=== PATIENT | male | born 1970 | race Caucasian/White ===

== ENCOUNTER 2016-09-23 21:37 | Emergency (ER) | payer OTHER ==
[~2016-09-23] VITALS: Ht 170.2 cm; Wt 78.0 kg
[2016-09-23 21:45] VITALS: BP 133/93; PULSE 88; RESP 14; TEMP 98.1; O2SAT 96
--- NOTE | 2016-09-23 22:40 | RADRPT ---
EXAM DATE/TIME: 09/23/2016 22:27 [place] COMPARISON: No previous studies available for comparison. INDICATIONS : Altered mental status; possible fall. ETOH. RADIATION DOSE: 37.12 CTDIvol (mGy) MEDICAL HISTORY : Seizures. SURGICAL HISTORY : Tonsillectomy. ENCOUNTER: Initial ACUITY: 1 day PAIN SCALE: Non-responsive LOCATION: cranial TECHNIQUE: Multiple contiguous axial images were obtained of the head. Using automated exposure control and adj ustment of the mA and/or kV according to patient size, radiation dose was kept as low as reasonably a chievable to obtain optimal diagnostic quality images. FINDINGS: There is no evidence for intracranial hemorrhage, mass effect, mass lesions, edema, or extra-axial fl uid collections. The visualized bony structures appear intact. The ventricles are normal size for t he patient's age. There are no signs of acute infarction for technique. CONCLUSION: Unremarkable study. Le Topete MD on September 23, 2016 at 22:37 Board Certified Radiologist. This report was verified electronically.
--- NOTE | 2016-09-23 22:52 | PD ---
HPI Chief Complaint: Alcohol/Drug Intoxication Time Seen by Provider: 22:46 Travel History International Travel<30 days: No Contact w/Intl Traveler<30days: No Traveled to known affect area: No History of Present Illness HPI 46-year-old white male presents to emergency department under [place] act by joanna OLIVARES. The patient was found intoxicated lying in the street. The patient here is very vague on why he was doing this. He denies any suicidal homicidal ideation. He does have an abrasion on his right elbow and on the left posterior occiput. He denies syncope. Up-to-date with immunizations. He does state that he is homeless and an alcoholic. He denies any seizure. Denies any recent illness. [facility] Past Medical History Narrative Medical Homelessness, alcoholism, alcohol withdrawal seizure, left upper extremity fracture, left lower extremity fracture Autoimmune Disease: No Blood Disorders: No Cancer: No Cardiovascular Problems: No Chemotherapy: No Diminished Hearing: No Endocrine: No Genitourinary: No Musculoskeletal: Yes (CHRONIC BACK PAIN) Neurologic: No Psychiatric: Yes (DEPRESSION AND ANXIETY) Respiratory: No Immunizations Current: Yes Radiation Therapy: No Seizures: Yes (1 SEIZURE APPROXIMATELY 6 MOS AGO, REFUSED TO GO TO HOSPITAL AT THAT TIME) Past Surgical History Narrative Surgical Tonsillectomy, left knee surgery Abdominal Surgery: No Cardiac Surgery: No Ear Surgery: No Endocrine Surgery: No Eye Surgery: No Genitourinary Surgery: No Gynecologic Surgery: No Oral Surgery: No Thoracic Surgery: No Tonsillectomy: Yes Other Surgery: Yes Social History Alcohol Use: Yes (6 PACK A DAY) Tobacco Use: Yes (1 PPD) Substance Use: Yes (MARIJUANA ) Allergies-Medications (Allergen,Severity, Reaction): Coded Allergies: Keflex (Verified Allergy, Severe, Hives, 09/23/16) Reported Meds & Prescriptions Reported Meds & Active Scripts Active No Active Prescriptions or Reported Medications Review of Systems ROS Limitations: Intoxication Physical Exam Narrative GENERAL: Well-nourished, well-developed patient. Smells of EtOH and appears intoxicated. SKIN: Warm and dry. Abrasion to the right elbow and left posterior occipital region. No step-off. HEAD: Normocephalic and abrasion to the left posterior occiput. EYES: No scleral icterus. No injection or drainage. ENT: No nasal drainage noted. Mucous membranes pink. Airway patent. NECK: Supple, trachea midline. Moves head freely without obvious discomfort. CARDIOVASCULAR: Regular rate and rhythm without murmurs, gallops, or rubs. RESPIRATORY: Breath sounds equal bilaterally. No accessory muscle use. GASTROINTESTINAL: Abdomen soft, non-tender, nondistended. EXTREMITIES: No cyanosis or edema. Chronic arthritic changes in the left upper extremity as well as the left lower extremity. BACK: Nontender without obvious deformity. No CVA tenderness. NEURO: Patient is alert and oriented. no sensorimotor deficits. Nonfocal. Slurred speech. PSYCH: No delusions. No auditory or visual hallucinations. Data Data Last Documented VS Vital Signs Date Time Temp Pulse Resp B/P Pulse Ox O2 Delivery O2 Flow Rate FiO2 09/23/16 21:49 92 96 Room Air 09/23/16 21:45 98.1 14 133/[address] Brain W/O Iv Contrast(Rout) (09/23/16 22:12) [facility] Medical Decision Making Medical Screen Exam Complete: Yes Emergency Medical Condition: Yes Medical Record Reviewed: Yes Interpretation(s) Last [address] 09/23/162211 Signed Impressions: Service Date/Time: Friday, September 23, 2016 22:27 - CONCLUSION: Unremarkable study. KFemi Topete MD Differential Diagnosis Differential diagnoses: Alcohol intoxication, substance abuse, electrolyte abnormality, malingering Narrative Course The patient's CAT scan is negative. His exam reveals superficial abrasions. He moves his head freely. He does not appear to be suffering from any acute injury. The patient will be allowed to sleep it off here in the ER and will be discharged when he exhibits sobriety. It does not appear that this was a suicidal action in by the patient. The patient endorses no suicidal ideation or homicidal ideation. Diagnosis Primary Impression: Alcohol intoxication Qualified Code: F10.120 - Alcohol intoxication, uncomplicated Additional Impression: Caron act-lifted Patient Instructions: General Instructions Additional Instructions: Rest. Increase fluids. Avoid alcohol. Avoid illegal substances. Follow-up with [facility] for detox. Do not operate a car or any heavy machinery under the influence of alcohol or drugs. Follow-up with a medical doctor this week. Return to the ER for emergencies Med/Other Pt SpecificInfo: Wound Care Scripts No Active Prescriptions or Reported Meds Disposition: DISCHARGE HOME Condition: Stable Sudhir Lazaro Sep 23, 2016 22:52
[2016-09-24 06:45] VITALS: BP 120/77
== END 2016-09-24 07:00 | disposition home or self-care (01) ==
LOC: NEPD 21:37 → NEDAMB 09-24 07:00
DX: F10.120 Alcohol abuse with intoxication, uncomplicated (principal); S50.311A Abrasion of right elbow, initial encounter; S00.81XA Abrasion of other part of head, initial encounter; X58.XXXA Exposure to other specified factors, initial encounter; Y92.414 Local residential or business street as the place of occurrence of the external cause; Z59.0 Homelessness
CPT/HCPCS: 70450

== ENCOUNTER 2016-10-18 14:33 | Emergency (ER) | payer OTHER ==
[~2016-10-18] VITALS: Ht 177.8 cm; Wt 79.5 kg
[2016-10-18 14:47] VITALS: BP 149/88; PULSE 105; RESP 15; TEMP 98.5
[2016-10-18] MEDS ORDERED: SODIUM CHLOR 0.9% 1000 ML INJ 1,000 ML IV ONE (15:00)
[2016-10-18] MEDS ORDERED: SODIUM CHLORIDE 0.9% FLUSH 10 ML FLUSH IVF PRN (15:00)
--- NOTE | 2016-10-18 15:00 | PD ---
HPI Chief Complaint: Alcohol/Drug Intoxication Time Seen by Provider: 14:55 Travel History International Travel<30 days: No Contact w/Intl Traveler<30days: No Traveled to known affect area: No History of Present Illness HPI Patient is a 46-year-old male brought in by the Police Department under a [place]man act due to public intoxication. Patient was found sleeping against a wall at a convenience store. Patient admits to drinking 4-5 "big boys" today. Patient states his motto is "beer and weed is all I need". He has not smoked any marijuana today. He denies any physical complaints. PFSH Past Medical History Autoimmune Disease: No Blood Disorders: No Depression: Yes (untreated ) Cancer: No Cardiovascular Problems: No Chemotherapy: No Diminished Hearing: No Endocrine: No Genitourinary: No Musculoskeletal: Yes (CHRONIC BACK PAIN) Neurologic: No Respiratory: No Immunizations Current: Yes Radiation Therapy: No Seizures: Yes (1 SEIZURE APPROXIMATELY 6 MOS AGO, REFUSED TO GO TO HOSPITAL AT THAT TIME) Tetanus Vaccination: < 5 Years Influenza Vaccination: No ?: Not Past Surgical History Abdominal Surgery: No Cardiac Surgery: No Cholecystectomy: Yes Ear Surgery: No Endocrine Surgery: No Eye Surgery: No Genitourinary Surgery: No Gynecologic Surgery: No Joint Replacement: Yes (Lt knee) Oral Surgery: No Thoracic Surgery: No Tonsillectomy: Yes Other Surgery: Yes Social History Alcohol Use: Yes Tobacco Use: Yes Substance Use: Yes Allergies-Medications (Allergen,Severity, Reaction): Coded Allergies: Keflex (Verified Allergy, Severe, Hives, 09/23/16) Reported Meds & Prescriptions Reported Meds & Active Scripts Active No Active Prescriptions or Reported Medications Review of Systems ROS Limitations: Intoxication Except as stated in HPI: all other systems reviewed are Neg Physical Exam Narrative GENERAL: Alert, well-developed, well-nourished, intoxicated-appearing male. Resting comfortably in no acute distress. SKIN: Focused skin assessment warm/dry. HEAD: Atraumatic. Normocephalic. EYES: Pupils equal and round. No scleral icterus. No injection or drainage. ENT: No nasal bleeding or discharge. Mucous membranes pink and moist. NECK: Trachea midline. No JVD. CARDIOVASCULAR: Regular rate and rhythm. No murmur appreciated. RESPIRATORY: No accessory muscle use. Clear to auscultation. Breath sounds equal bilaterally. GASTROINTESTINAL: Abdomen soft, non-tender, nondistended. Hepatic and splenic margins not palpable. MUSCULOSKELETAL: No obvious deformities. No clubbing. No cyanosis. No edema. NEUROLOGICAL: Awake and alert and oriented. No obvious cranial nerve deficits. Motor grossly within normal limits. Normal speech. PSYCHIATRIC: Appropriate mood and affect; insight and judgment normal. Data Data Last Documented VS Vital Signs Date Time Temp Pulse Resp B/P Pulse Ox O2 Delivery O2 Flow Rate FiO2 10/18/16 14:47 98.5 105 15 149/88 Orders Complete Blood Count With Diff (10/18/16 14:50) Comprehensive Metabolic Panel (10/18/16 14:50) Urinalysis - C+S If Indicated (10/18/16 14:50) Oximetry (10/18/16 14:50) Iv Access Insert/Monitor (10/18/16 14:50) Ecg Monitoring (10/18/16 14:50) Sodium Chloride 0.9% Flush (Ns Flush) (10/18/16 15:00) Drug Screen, Random Urine (10/18/16 14:50) Alcohol (Ethanol) (10/18/16 14:50) Sodium Chlor 0.9% 1000 Ml Inj (Ns 1000 M (10/18/16 15:00) Labs Laboratory Tests Test 10/18/16 14:50 White Blood Count 7.4 TH/MM3 Red Blood Count 4.49 MIL/MM3 Hemoglobin 14.7 GM/DL Hematocrit 43.8 % Mean Corpuscular Volume 97.5 FL Mean Corpuscular Hemoglobin 32.8 PG Mean Corpuscular Hemoglobin 33.6 % Concent Red Cell Distribution Width 13.9 % Platelet Count 189 TH/MM3 Mean Platelet Volume 7.9 FL Neutrophils (%) (Auto) 55.7 % Lymphocytes (%) (Auto) 31.6 % Monocytes (%) (Auto) 9.8 % Eosinophils (%) (Auto) 2.4 % Basophils (%) (Auto) 0.5 % Neutrophils # (Auto) 4.1 TH/MM3 Lymphocytes # (Auto) 2.4 TH/MM3 Monocytes # (Auto) 0.7 TH/MM3 Eosinophils # (Auto) 0.2 TH/MM3 Basophils # (Auto) 0.0 TH/MM3 CBC Comment DIFF FINAL Differential Comment Urine Color YELLOW Urine Turbidity CLEAR Urine pH 5.0 Urine Specific [place] 1.003 Urine Protein TRACE mg/dL Urine Glucose (UA) NEG mg/dL Urine Ketones TRACE mg/dL Urine Occult Blood NEG Urine Nitrite NEG Urine Bilirubin NEG Urine Urobilinogen LESS THAN 2.0 MG/DL Urine Leukocyte Esterase NEG Urine RBC LESS THAN 1 /hpf Urine WBC 1 /hpf Urine Bacteria RARE /hpf Microscopic Urinalysis Comment CULT NOT INDICATED Sodium Level 135 MEQ/L Potassium Level 4.6 MEQ/L Chloride Level 100 MEQ/L Carbon Dioxide Level 23.9 MEQ/L Anion Gap 11 MEQ/L Blood Urea Nitrogen 4 MG/DL Creatinine 0.60 MG/DL Estimat Glomerular Filtration 146 ML/MIN Rate Random Glucose 116 MG/DL Calcium Level 8.5 MG/DL Total Bilirubin 0.5 MG/DL Aspartate Amino Transf 102 U/L (AST/SGOT) Alanine Aminotransferase 72 U/L (ALT/SGPT) Alkaline Phosphatase 83 U/L Total Protein 7.6 GM/DL Albumin 3.4 GM/DL Urine Opiates Screen NEG Urine Barbiturates Screen NEG Urine Amphetamines Screen NEG Urine Benzodiazepines Screen NEG Urine Cocaine Screen NEG Urine Cannabinoids Screen NEG Ethyl Alcohol Level 348 MG/DL MDM Medical Decision Making Medical Screen Exam Complete: Yes Emergency Medical Condition: Yes Interpretation(s) Vital Signs Date Time Temp Pulse Resp B/P Pulse Ox O2 Delivery O2 Flow Rate FiO2 10/18/16 14:47 98.5 105 15 149/88 Differential Diagnosis Acute intoxication versus substance abuse versus mood disorder versus syncope versus arrhythmia versus electrolyte abnormality versus other Narrative Course Patient is a 46-year-old male brought in under the [employer] act for public intoxication. Labs ordered and pending, IV fluids ordered. Vital signs are stable, patient resting comfortably. CBC is unremarkable Chemistry is unremarkable Urine drug screen is negative, alcohol level is 348 Urinalysis is not indicative of urinary tract infection Patient is acutely intoxicated, he will be allowed to sleep it off, he was offered food. When patient can ambulate safely he'll be discharged from the emergency department. Patient is medically cleared. 1700- BP 110/62 HR 65 O2 Sat 96% on room air asleep Diagnosis Primary Impression: Alcohol intoxication Qualified Code: F10.920 - Alcohol intoxication, uncomplicated Referrals: [facility] Patient Instructions: Abuse of Alcohol (ED), Alcohol Intoxication (DC), General Instructions Additional Instructions: Avoid excessive intake of alcohol Maintain adequate fluid intake Follow-up with the [facility] Return to emergency department for any new or worsening symptoms Med/Other Pt SpecificInfo: No Change to Meds Scripts No Active Prescriptions or Reported Meds Disposition: 01 DISCHARGE HOME Condition: Stable Princess Hussein October 18, 2016 15:00
[2016-10-18 15:16] LABS: AUTOMATED NEUTROPHIL # 4.1 TH/MM3 (1.8-7.7); BASOPHIL % 0.5 % (0.0-2.0); EOSINOPHIL # 0.2 TH/MM3 (0-0.4); EOSINOPHIL % 2.4 % (0.0-4.0); HEMATOCRIT 43.8 % (39.0-51.0); HEMO FLAGS DIFF FINAL; LYMPH % 31.6 % (9.0-44.0); LYMPHOCYTE # 2.4 TH/MM3 (1.0-4.8); MEAN CELL VOLUME 97.5 FL (80.0-100.0); MEAN CORPUSCULAR HEMOGLOBIN 32.8 PG (27.0-34.0); MEAN CORPUSCULAR HGB CONC 33.6 % (32.0-36.0); MONO % 9.8 % (0.0-8.0); NEUT % 55.7 % (16.0-70.0); PLATELET COUNT 189 TH/MM3 (150-450); RED BLOOD COUNT 4.49 MIL/MM3 (4.50-5.90); RED CELL DISTRIBUTION WIDTH 13.9 % (11.6-17.2); WHITE BLOOD COUNT 7.4 TH/MM3 (4.0-11.0)
[2016-10-18 15:25] LABS: AMPHETAMINE, URINE NEG (NEG); BARBITURATES, URINE NEG (NEG); COCAINE, URINE NEG (NEG)
[2016-10-18 15:26] LABS: BACTERIA, URINE RARE /hpf; BLOOD, URINE NEG (NEG); COMMENT (UR) CULT NOT INDICATED; CULTURE IF INDICATED CULT NOT INDICATED; GLUCOSE,URINE NEG (NEG); KETONE, URINE TRACE mg/dL (NEG); NITRITE,URINE NEG (NEG); URINE COLOR YELLOW (YELLW/STRAW)
[2016-10-18 15:28] LABS: ALT (GPT) 72 U/L (12-78); ANION GAP 11 MEQ/L (5-15); AST (GOT) 102 U/L (15-37); BICARBONATE 23.9 MEQ/L (21.0-32.0); BLOOD UREA NITROGEN 4 MG/DL (7-18); CHLORIDE 100 MEQ/L (98-107); GLOMERULAR FILTRATION RATE 146 ML/MIN (>89); POTASSIUM 4.6 MEQ/L (3.5-5.1); SODIUM (NA) 135 MEQ/L (136-145)
[2016-10-18 15:32] LABS: ALKALINE PHOSPHATASE 83 U/L (45-117); TOTAL BILIRUBIN ADULT 0.5 MG/DL (0.2-1.0)
== END 2016-10-18 22:04 | disposition home or self-care (01) ==
LOC: NEPE 14:33
DX: F10.120 Alcohol abuse with intoxication, uncomplicated (principal); Z72.0 Tobacco use; Y90.8 Blood alcohol level of 240 mg/100 ml or more
CPT/HCPCS: 80053; 80307; 81001; 85025; 96360; 99284; J7030